=== PATIENT | male | born 2000 | race Hispanic/Latino ===

== ENCOUNTER 2021-09-07 17:01 | Emergency (ER) | payer OTHER ==
[~2021-09-07] VITALS: Ht 170.2 cm; Wt 63.5 kg
[2021-09-07] MEDS ORDERED: DOXYCYCLINE HY100 MG PO (17:32)
[2021-09-07] MEDS ORDERED: AZITHROMYCIN 250 MG TAB PO ONE (17:45)
[2021-09-07] MEDS ORDERED: CEFTRIAXONE 500 MG VIAL IM ONE (17:45)
[2021-09-07] MEDS ORDERED: CEFTRIAXONE 1 GM VIAL ONE (17:49)
[2021-09-07] MEDS ORDERED: LIDOCAINE HCL 2% LOCAL 20 ML VIAL ONE (17:49)
[2021-09-07] MEDS ORDERED: AZITHROMYCIN 250 MG TAB ONE (17:50)
== END 2021-09-07 17:59 | disposition home or self-care (01) ==
LOC: FSED 17:23
DX: A56.8 Sexually transmitted chlamydial infection of other sites (principal)
CPT/HCPCS: 99283; J0696; J2001

== ENCOUNTER 2022-10-12 22:37 | Emergency (ER) | payer OTHER ==
[~2022-10-12] VITALS: Ht 170.2 cm; Wt 68.0 kg
[~2022-10-12 22:37] MED LIST: DOXYCYCLINE HY100 MG PO
[2022-10-12] MEDS ORDERED: IBUPROFEN 600 MG TAB PO STA (23:09)
[2022-10-12] MEDS ORDERED: IBUPROFEN 600 MG TAB ONE (23:10)
[2022-10-12] MEDS ORDERED: IBUPROFEN800 MG PO (23:19)
[2022-10-12] MEDS ORDERED: CEFDINIR300 MG PO (23:19)
== END 2022-10-13 | disposition home or self-care (01) ==
LOC: FSED 22:49
DX: R50.9 Fever, unspecified (principal); J02.0 Streptococcal pharyngitis
CPT/HCPCS: 83518; 99283

== ENCOUNTER 2022-11-01 23:02 | Emergency (ER) | payer OTHER ==
[~2022-11-01] VITALS: Ht 170.2 cm; Wt 71.2 kg
[~2022-11-01 23:02] MED LIST changes: +CEFDINIR300 MG PO; +IBUPROFEN800 MG PO
[2022-11-01] MEDS ORDERED: LIDOCAINE 1% 10 ML MULTIDOSE VIAL IJ ONE (23:44)
[2022-11-01] MEDS ORDERED: CEFTRIAXONE 500 MG VIAL ONE (23:44)
[2022-11-01] MEDS ORDERED: CEFTRIAXONE 500 MG VIAL IM ONE (23:45)
[2022-11-01] MEDS ORDERED: DOXYCYCLINE HY100 MG PO (23:58)
[2022-11-02 00:05] VITALS: BP 132/74
== END 2022-11-02 00:04 | disposition home or self-care (01) ==
LOC: FSED 23:08
DX: A56.8 Sexually transmitted chlamydial infection of other sites (principal)
CPT/HCPCS: 96372; 99282; J0696

== ENCOUNTER 2023-01-07 13:31 | Emergency (ER) | payer SELFPAY ==
[~2023-01-07] VITALS: Ht 172.7 cm; Wt 72.6 kg
[2023-01-07 14:01] VITALS: O2SAT 97
[2023-01-07] MEDS ORDERED: ONDANSETRON HCL 4 MG ORAL DISINTEGRATING TAB PO ONE (14:30)
[2023-01-07] MEDS ORDERED: CEFTRIAXONE 500 MG VIAL IM ONE (14:30)
[2023-01-07] MEDS ORDERED: AZITHROMYCIN 250 MG TAB PO ONE (14:30)
[2023-01-07] MEDS ORDERED: DOXYCYCLINE HY100 MG PO (14:31)
[2023-01-07] MEDS ORDERED: CEFTRIAXONE 500 MG VIAL ONE (14:38)
[2023-01-07] MEDS ORDERED: ONDANSETRON HCL 4 MG ORAL DISINTEGRATING TAB ONE (14:38)
[2023-01-07] MEDS ORDERED: AZITHROMYCIN 250 MG TAB ONE (14:38)
[2023-01-07] MEDS ORDERED: LIDOCAINE HCL 1% LOCAL INJ 20 ML VIAL ONE (14:39)
[2023-01-07] MEDS ORDERED: METRONIDAZOLE500 MG PO (15:13)
[2023-01-07 16:45] LABS: CLARITY,URINE CLEAR (CLEAR); COLOR,URINE YELLOW (YELLOW); LEUKOCYTE ESTERASE ,URINE NEGATIVE (NEGATIVE); NITRITE,URINE NEGATIVE (NEGATIVE)
[2023-01-07 16:46] LABS: KETONES,URINE 1+ (NEGATIVE); PROTEIN,URINE DIPSTICK NEGATIVE (NEGATIVE); URINE UROBILINOGEN 0.2 mg/dL (0.2 - 1)
[2023-01-07 16:48] LABS: RBC,URINE 0-5 /HPF (0-5)
== END 2023-01-07 15:18 | disposition home or self-care (01) ==
LOC: FSED 13:35
DX: A64 Unspecified sexually transmitted disease (principal); N34.2 Other urethritis
CPT/HCPCS: 81001; 87086; 96372; 99283; J0696; J2001; Q0162